=== PATIENT | male | born 1965 | race Caucasian/White ===

== ENCOUNTER 2023-11-09 08:00 | Day surgery (SDC) | payer OTHER, SELFPAY ==
[2023-10-14 08:40] VITALS: BMI 25.1
--- NOTE | 2023-11-09 07:21 | P.PNAN_ITS ---
Anes - Initial Pre Proc Eval Procedure: Operation Date: 11/09/23 10:00 Proposed Procedures p Screening Colonoscopy - Ramses Alberts MD Date/Time: 11/09/23 07:21 Surgeon: Ramses Alberts MD Pre Op Diagnosis: Neoplasm Screening Patient Data Age: 57 Gender: M Height: 1.75 m Weight: 77.111 kg Allergies Allergy/AdvReac Type Severity Reaction Status Date / Time amoxicillin Allergy Mild Rash Verified 11/09/23 08:48 azithromycin Allergy Mild Rash Verified 11/09/23 08:48 Penicillins Allergy Mild Rash Verified 11/09/23 08:48 Home Medications Medication Instructions Recorded Confirmed Type amitriptyline 10 mg tablet 10 mg PO HS 10/26/23 11/09/23 History multivitamin 1 tablet PO DAILY 10/26/23 11/09/23 History omega-3 fatty acids 1 cap PO DIRECTED 10/26/23 11/09/23 History Patient hx anesthesia problems: none Family hx anesthesia problems: none Results Review: All pre-operative results and documents have been reviewed as part of the pre- operative evaluation. [facility] Past Medical History Medical History (Updated 11/09/23 @ 07:22 by Fabrizio Chawla DO) BPH (benign prostatic hyperplasia) Renal stones Social History Social History (System 04/16/22 @ 09:24 by Hilton Coyle) Smoking status: Never smoker Substance use type: does not use Living arrangements: with family Anes - Eval Final PreProcedure Day of Procedure 11/09/23 07:21 Patient weight: overweight Heart: regular rate and rhythm Lungs: clear to auscultation Airway: Mallampati scale class II Neurological: alert and oriented Last oral intake: >/= 8 hours ASA classification: II Emergent: no Anesthetic plan: proceed Anesthesia type and monitoring: general GIVS and standard monitoring Results Review: All pre-operative results and documents have been reviewed as part of the pre- operative evaluation. Informed Consent: The patient's anesthetic plan and its attendant risks and benefits were discussed with the patient/family/POA. Questions were solicited and answers provided to the satisfaction of the patient/family/POA.
[2023-11-09 08:58] VITALS: BP 119/79; PULSE 80; RESP 18; TEMP 36.4; O2SAT 98; BMI 25.5
[2023-11-09] MEDS: LACTATED RINGERS 1,000 ML 150 ML IV CONT (09:11)
--- NOTE | 2023-11-09 09:12 | SUR.PREOP ---
PT C/O QUEASY FEELING AFTER IV START. IVF INCREASED. PT HOB FLAT. COLD CLOTH TO FOREHEAD. SIDERAILS UP BILAT. CALL LIGHT IN REACH
--- NOTE | 2023-11-09 09:45 | SUR.PREOP ---
PT STATES HE FEELS FINE NOW. SITTING UP. IVF SLOWED. DR DELACRUZ NOTIFIED.
--- NOTE | 2023-11-09 09:53 | P.HP_ITS ---
History of Present Illness History of Present Illness Consent: Risks, benefits, and alternatives have been discussed and questions answered. Patient agrees to proceed with procedure. Chief complaint: Neoplasm Screening Narrative: Brent Pacheco is a 57 year old male presents for screening colonoscopy. Patient's current weight appetite and bowel movements are normal. He denies abdominal pain. Patient has had no bleeding. Family history no the Vikas. Patient has had difficulty with prostate issues. Followed by primary care service. Review of Systems Review of Systems: Review of systems is noncontributory. [facility] Past Medical History Medical History (Updated 11/09/23 @ 09:55 by Ramses Alberts MD) BPH (benign prostatic hyperplasia) Renal stones Social History Social History (System 04/16/22 @ 09:24 by Hilton Coyle) Smoking status: Never smoker Substance use type: does not use Living arrangements: with family Meds Home Medications and Allergies Home Medications Medication Instructions Recorded Confirmed Type amitriptyline 10 mg tablet 10 mg PO HS 10/26/23 11/09/23 History multivitamin 1 tablet PO DAILY 10/26/23 11/09/23 History omega-3 fatty acids 1 cap PO DIRECTED 10/26/23 11/09/23 History Allergies Allergy/AdvReac Type Severity Reaction Status Date / Time amoxicillin Allergy Mild Rash Verified 11/09/23 08:48 azithromycin Allergy Mild Rash Verified 11/09/23 08:48 Penicillins Allergy Mild Rash Verified 11/09/23 08:48 Vital Signs Vital Signs - 24 hr 11/09/23 08:58 Temperature 97.5 F L Pulse Rate 80 Respiratory Rate 18 Blood Pressure 119/79 Pulse Oximetry 98 Oxygen Delivery Room Air Exam Narrative: Physical exam reveals patient to be alert. Vital signs stable. HEENT exam is unremarkable. Patient is anicteric. Is are clear to auscultation and to percussion. Heart is without murmur or extra sounds. Abdomen sounds are present soft nontender with no organomegaly. Digital external rectal exam is normal. Assessment and Plan Assessment and plan (1) Encounter for screening colonoscopy: Code(s): Z12.11 - Encounter for screening for malignant neoplasm of colon Status: Acute Assessment and Plan: Presents today for screening colonoscopy. He appears to be at a risk for colon polyps. Further recommends may be given after endoscopy.
[2023-11-09 10:17] VITALS: BP 112/62; PULSE 68; RESP 16; O2SAT 94
[2023-11-09 10:27] VITALS: BP 94/69; PULSE 64; RESP 16; O2SAT 95
[2023-11-09 10:37] VITALS: BP 103/69; PULSE 65; RESP 16; O2SAT 95
--- NOTE | 2023-11-09 12:29 | WPDANESPN ---
Anes - Prog Note Post-Op Date/Time: 11/09/23 12:29 Cardiovascular status: normal Respiratory status: normal Airway patency: baseline Mental status: baseline Post-Op hydration status: normal Vital Signs: Last Vital Signs Temp 36.4 C L 11/09/23 08:58 Pulse 65 11/09/23 10:37 Resp 16 11/09/23 10:37 BP 103/69 11/09/23 10:37 Pulse Ox 95 11/09/23 10:37 O2 Del Method Room Air 11/09/23 10:37 Pain Score (VAS): 0 I/O: Intake & Output 11/08/23 11/09/23 11/09/23 23:59 07:59 15:59 Intake Total 900 Balance 900 Post-procedural complaints: none Patient Feedback: Patient satisfied with anesthetic care. Other Findings: Patient vital signs back to baseline. Patient denies nausea and vomiting. Patient's pain under control. Patient OK for discharge.
== END 2023-11-09 11:19 | disposition home or self-care (01) ==
PROVIDERS: PCP Physician Assistant; Visit Provider Internal Medicine Gastroenterology
PROC: 0DJD8ZZ Inspection of Lower Intestinal Tract, Via Natural or Artificial Opening Endoscopic (ICD-10-PCS; CPT 45378; principal; 2023-11-09 10:00)
DX: Z12.11 Encounter for screening for malignant neoplasm of colon (principal); K64.8 Other hemorrhoids
CPT/HCPCS: 45378